=== PATIENT | female | born 1990 | race Caucasian/White ===

== ENCOUNTER 2020-04-19 22:54 | Outpatient (CLI) | payer OTHER ==
[2020-04-19 23:55] LABS: HEMOGLOBIN 11.3 gm/dl (12.3-15.3); RED BLOOD COUNT 4.54 M/UL (4.00-5.10)
[2020-04-20 08:15] LABS: BUN/CREATININE RATIO 13 (0-10)
== END 2020-04-20 01:09 | disposition home or self-care (01) ==
LOC: GENOP 22:54
PROVIDERS: Obstetrics & Gynecology
DX: O16.3 Unspecified maternal hypertension, third trimester (principal); Z3A.30 30 weeks gestation of pregnancy; Z88.2 Allergy status to sulfonamides; Z88.8 Allergy status to other drugs, medicaments and biological substances
CPT/HCPCS: 36415; 80053; 81001; 82570; 83615; 84156; 84550; 85025; G0463

== ENCOUNTER 2020-05-30 16:07 | Inpatient (IN) | payer OTHER ==
[~2020-05-30] VITALS: Ht 162.6 cm; Wt 106.1 kg
[2020-05-30 16:39] LABS: HEMOGLOBIN 13.3 gm/dl (12.3-15.3); RED BLOOD COUNT 4.91 M/UL (4.00-5.10); WHITE BLOOD COUNT 9.6 K/UL (4.5-11.0)
[2020-05-30 16:59] LABS: BUN/CREATININE RATIO 14 (0-10)
[2020-05-30] MEDS ORDERED: LABETALOL HCL300 MG PO (18:00)
[2020-05-30] MEDS ORDERED: ZOLOFT50 MG PO (18:00)
[2020-05-30] MEDS ORDERED: PEPCID20 MG PO (18:01)
[2020-05-30] MEDS ORDERED: PRENATAL VITAM1 EAC3 PO (18:01)
[2020-05-30] MEDS ORDERED: FERROUS SULFAT325 M2 PO (18:02)
[2020-05-31] MEDS ORDERED: COLACE 100MG C100 MG PO (16:24)
[2020-05-31] MEDS ORDERED: HYDROCODON-ACE1 EAC4 PO (16:24)
[2020-05-31] MEDS ORDERED: ANAPROX DS550 MG PO (16:24)
[2020-06-01 02:03] LABS: HEMOGLOBIN 11.4 gm/dl (12.3-15.3)
[2020-06-02 06:27] LABS: HEMOGLOBIN 12.4 gm/dl (12.3-15.3)
== END 2020-06-02 12:28 | disposition home or self-care (01) | DRG 807 ==
LOC: GENOP 16:07 → OB 16:20
PROVIDERS: Obstetrics & Gynecology; ADMIT Obstetrics & Gynecology
PROC: 10E0XZZ Delivery of Products of Conception, External Approach (ICD-10-PCS; principal; 2020-05-31)
PROC: 10907ZC Drainage of Amniotic Fluid, Therapeutic from Products of Conception, Via Natural or Artificial Opening (ICD-10-PCS; 2020-05-31)
PROC: 3E033VJ Introduction of Other Hormone into Peripheral Vein, Percutaneous Approach (ICD-10-PCS; 2020-05-31)
PROC: 4A1HXCZ Monitoring of Products of Conception, Cardiac Rate, External Approach (ICD-10-PCS; 2020-05-31)
PROC: 4A1HXFZ Monitoring of Products of Conception, Cardiac Rhythm, External Approach (ICD-10-PCS; 2020-05-31)
DX: O11.3 Pre-existing hypertension with pre-eclampsia, third trimester (principal); Z37.0 Single live birth; Z3A.36 36 weeks gestation of pregnancy; O10.913 Unspecified pre-existing hypertension complicating pregnancy, third trimester
CPT/HCPCS: 36415; 51702; 80053; 81001; 82570; 84156; 84550; 85014; 85018; 85025; 90471; 90707; 90715; J0690; J2590; J2795; J7120; U0002

== ENCOUNTER 2021-09-12 17:44 | Observation (INO) | payer BC ==
[~2021-09-12 17:44] MED LIST: ANAPROX DS550 MG PO; COLACE 100MG C100 MG PO; FERROUS SULFAT325 M2 PO; HYDROCODON-ACE1 EAC4 PO; LABETALOL HCL300 MG PO; PEPCID20 MG PO; PRENATAL VITAM1 EAC3 PO; ZOLOFT50 MG PO
[2021-09-12 19:44] LABS: BUN/CREATININE RATIO 9 (0-10)
[2021-09-12 21:52] LABS: HEMOGLOBIN 11.9 gm/dl (12.3-15.3); RED BLOOD COUNT 4.74 M/UL (4.00-5.10); WHITE BLOOD COUNT 5.1 K/UL (4.5-11.0)
== END 2021-09-12 21:01 | disposition home or self-care (01) ==
LOC: OB 18:10
PROVIDERS: Internal Medicine Pulmonary Disease; ADMIT Obstetrics & Gynecology
DX: O21.0 Mild hyperemesis gravidarum (principal); O10.911 Unspecified pre-existing hypertension complicating pregnancy, first trimester; Z3A.11 11 weeks gestation of pregnancy
CPT/HCPCS: 80053; 81001; 82009; 82150; 83690; 85025; 96360; 96361; 96368; 96374; 96375; C9113; G0378; G0379; J0780; J1720; J2405; J7121

== ENCOUNTER → 2021-11-16 | Outpatient (CLI) | payer BC | LOC: EXRD 08:57 | DX: O99.891 Other specified diseases and conditions complicating pregnancy (principal); Z3A.00 Weeks of gestation of pregnancy not specified | CPT/HCPCS: 76705 ==